=== PATIENT | female | born 1955 | race Caucasian/White ===

== ENCOUNTER → 2023-05-10 08:31 | Outpatient (REF) | payer MEDICARE, OTHER, SELFPAY | LOC: DHCBC/DCA 08:31 | PROVIDERS: ATTENDING PHYSICIAN Nuclear Medicine Nuclear Cardiology; FAMILY PHYSICIAN Family Medicine | DX: R00.2 Palpitations (principal); R07.9 Chest pain, unspecified | CPT/HCPCS: 78452; 93017; A9500; J2785 ==

== ENCOUNTER → 2023-05-25 07:16 | Outpatient (REF) | payer MEDICARE, OTHER, SELFPAY | LOC: DHCBS MAIN 07:16 | PROVIDERS: ATTENDING PHYSICIAN Nuclear Medicine Nuclear Cardiology; FAMILY PHYSICIAN Family Medicine | DX: R00.2 Palpitations (principal); R07.9 Chest pain, unspecified | CPT/HCPCS: 93306 ==

== ENCOUNTER → 2023-06-09 11:11 | Outpatient (REF) | payer MEDICARE, OTHER, SELFPAY | LOC: WDC 11:11 | PROVIDERS: ATTENDING PHYSICIAN Family Medicine | DX: Z12.31 Encounter for screening mammogram for malignant neoplasm of breast (principal) | CPT/HCPCS: 77063; 77067 ==

== ENCOUNTER 2023-08-15 19:55 | Emergency (ER) | payer MEDICARE, OTHER, SELFPAY ==
[2023-08-15 20:08] VITALS: BP 176/104
--- NOTE | 2023-08-15 20:35 | ED.GENMED ---
History of Present Illness
General
Chief Complaint: Musculo-Skeletal Complaint
Source: patient
Exam Limitations: none
Time Seen by Provider: 08/15/23 20:26
Travel History
Have you had any contact with someone who has COVID-19?: No
Do you have any symptoms of coronavirus? Fever > 100 degrees, chills, cough, shortness of breath, sore throat, loss of taste or smell, muscle aches, or headache?: Yes
Symptoms:: cold symptoms
History of Present Illness
History of Present Illness:
68-year-old female nontraumatic left sided neck pain that started 3+ days ago. Pain is left paracervical. Clearly worse with lateral rotation to the left and right. Some spasm-like episodes. Is able to flex the neck. No numbness tingling
weakness unusual headaches fever or other complaints.
Past History
Past History
ED Past Medical History: Hypercholesterolemia and Other (Interstitial cystitis)
Review of Systems
Review of Systems
All Other Systems: Not applicable
Constitutional: Denies fever
Neurological: Denies dizzy, headache, weakness or numbness
Phy Exam
Physical Exam
Physical Exam:
GENERAL: Alert and oriented in no apparent distress. Patient ambulated to the room without difficulty
EYE: Orbits normal.
NECK: Able to flex the left relatively well. However self splinting with significant decreased left and right lateral rotation. No spinal tenderness. Left paraspinal tenderness. No swelling erythema or warmth. No carotid bruit
CARDIAC: Regular rate and rhythm without any obvious murmurs.
LUNGS: Clear breath sounds,normal
NEUROLOGICAL: Alert and oriented , grossly non-focal
SKIN: Warm and dry, no rash or lesion, no discoloration, skin intact.
MUSCULOSKELETAL: No edema,no deformity.Good color
PSYCH: Normal and appropriate interaction.
Course
Orders/Labs/Results
Orders:
Orders
08/15/23 20:33
IV Insert/Care/Rem.- Treatment PRN
08/15/23 20:34
CT Cervical Spine W/o Iv Contr Urgent
Comment:
Reason For Exam: Nontraumatic neck pain
08/15/23 20:35
Diazepam [Valium] 2 mg PO NOW STA
Ketorolac [Toradol] 15 mg IV NOW STA
08/15/23 20:43
Basic Metabolic Panel Urgent
CRP [C-Reactive Protein] Urgent
Complete Blood Count/With Diff Urgent
ESR [Erythrocyte Sed Rate] Urgent
Lyme Progressive Urgent
Abnormal Lab Results
08/15/23
20:43
WBC 11.2 H 10^3/uL
(4.8-10.8)
Absolute Neuts (auto) 7.8 H 10^3/uL
(1.4-6.5)
BUN 20 H mg/dl
(7-17)
Creatinine 0.5 L mg/dL
(0.6-1.0)
Glucose 108 H mg/dl
(70-99)
08/15/23 20:43
08/15/23 20:43
Vital Signs
Initial and Last Documented VS:
Initial Vital Signs
Temp Pulse Resp BP Pulse Ox
99.1 F 94 20 176/104 98
08/15/23 20:08 08/15/23 20:08 08/15/23 20:08 08/15/23 20:08 08/15/23 20:08
Last Documented Vital Signs
Temp Pulse Resp BP Pulse Ox
99.1 F 76 18 144/74 99
08/15/23 20:08 08/15/23 21:59 08/15/23 21:59 08/15/23 21:59 08/15/23 21:59
MDM/Problems Addressed
Differential Diagnosis Includes:
Nontraumatic left paracervical tenderness with clearly positional component. Doubt infectious issue. However we we will do an ESR CRP and WBC count as a screen. No neurologic symptoms with this. Clinically not meningitic. Clinically this is
very much a torticollis. Labs pending. Toradol and Valium. Patient had asked about a Lyme issue. Highly doubt it but we can send a Lyme titer.
*Radiology
Radiology exam reviewed: radiology read reviewed (Degenerative changes)
*Pulse Oximetry
Patient hypoxic: no
*Critical Care Note
Total Time (30-74mins, 75-104mins- exclusive of procedures): Not Applicable
Update Note
Update Note:
Nothing to support infectious or acute neurologic issue. Patient has better range of motion when returning to the room. Do a low-dose of steroids changed to Valium as a muscle relaxer and follow-up.
ED Attending Note
-
Portions of this chart may have been created with voice recognition software.� Occasional wrong word or��sound alike� substitutions may have occurred due to the inherent limitations of voice recognition software.
Discharge Plan
Departure
Patient Disposition: Home (Routine Discharge)
Date of Disposition: 08/15/23
Time of Disposition: 22:19
Patient with high blood pressure during this ER visit?: Yes
Discharge Problem:
Left paracervical pain/torticollis
Instructions: Torticollis (DC), Neck Pain ED, BLOOD PRESSURE
Prescriptions:
New
methylprednisolone [Medrol (Ej)] 4 mg tablets,dose pack
See Rx Instructions .ROUTE .COMPLEX Qty: 21 0RF
Rx Instructions:
for 6 days
diazepam [Valium] 5 mg tablet
5 mg PO TID PRN (Reason: muscle spasm) Qty: 14 0RF
Referrals:
Nesha Ramires MD [Family Provider] - Follow up in 2-3 days
Activity Restrictions/Additional Instructions:
You can try the Valium instead of your other muscle relaxer. Do not take both
Continue Advil Motrin or Aleve
Medrol Dosepak.
Interventions
Interventions:
*Risk Screen - Suicide Last Done: 08/15/23 20:08
*General Assessment Last Done: 08/15/23 20:08
*Neglect/Abuse Screening Last Done: 08/15/23 20:08
ED- Fall Risk Assessment Last Done: 08/15/23 20:08
*ED COVID-19 Vaccine History Last Done: 08/15/23 20:08
ED-Musculoskeletal Assessment Last Done: 08/15/23 20:51
Discharge Date and Time
Print Language: SENEGALESE
[2023-08-15 20:38] VITALS: BMI 26.8
[2023-08-15] MEDS: VALIUM 2 MG PO ×2 (20:44→22:37)
[2023-08-15] MEDS: TORADOL 15 MG IV (20:44)
[2023-08-15 20:55] LABS: % Basophils 0.4 % (0-2); % Eosinophils 1.1 % (0-6); % Immature Granulocytes 0.4 % (0-0.5); % Lymphocytes 23.5 % (20.5-51.1); % Monocytes 5.3 % (1.7-9.3); % Neutrophils 69.3 % (42.2-75.2); Absolute Basophils 0.1 10^3/uL (0-0.2); Absolute Eosinophils 0.1 10^3/uL (0-0.7); Absolute Lymphocytes 2.6 10^3/uL (1.2-3.4); Absolute Monocytes 0.6 10^3/uL (0.1-0.6); Absolute Neutrophils 7.8 10^3/uL (1.4-6.5); Hematocrit 38.9 % (37.0-47.0); Hemoglobin 13.1 g/dL (12.0-16.0); Mean Corp Hgb Conc. 33.7 g/dL (33.0-37.0); Mean Corpuscular Volume 86.3 fL (81.0-99.0); Mean Platelet Volume 9.1 fL (7.4-10.4); Nucleated Red Blood Cells % 0 %; Platelet Count 350 10^3/uL (130-400); Red Blood Cell Count 4.51 10^6/uL (4.20-5.40); Red Cell Dist. Width 14.2 % (11.5-14.5); White Blood Cell Count 11.2 10^3/uL (4.8-10.8)
[2023-08-15 21:12] LABS: Blood Urea Nitrogen 20 mg/dl (7-17); Calcium 10.1 mg/dl (8.4-10.2); Carbon Dioxide 29 mmol/L (22-30); Chloride 101 mmol/L (98-107); Estimated Creatinine Clearance 82 ml/min; Glucose 108 mg/dl (70-99); Sodium 140 mmol/L (135-145); eGFR > 60.00
[2023-08-15 21:19] LABS: Erythrocyte Sed Rate 14 mm/hour (0-20)
[2023-08-15 21:59] VITALS: BP 144/74
[2023-08-15] MEDS: DECADRON 4 MG IV (22:30)
[2023-08-17 13:58] LABS: Lyme Antibody Screen, EIA Negative (Negative)
== END 2023-08-15 22:42 | disposition home or self-care (01) ==
LOC: EMR 19:55
PROVIDERS: EMERGENCY PHYSICIAN Emergency Medicine; FAMILY PHYSICIAN Family Medicine
DX: M54.2 Cervicalgia (principal); M43.6 Torticollis; R03.0 Elevated blood-pressure reading, without diagnosis of hypertension
CPT/HCPCS: 99284; 96374; 96375; 72125; 80048; 85025; 85652; 86140; 86618

== ENCOUNTER → 2023-11-16 06:36 | Day surgery (SDC) | payer MEDICARE, OTHER, SELFPAY | LOC: GI 06:36 | PROVIDERS: ATTENDING PHYSICIAN Internal Medicine; FAMILY PHYSICIAN Family Medicine | DX: Z12.11 Encounter for screening for malignant neoplasm of colon (principal); K57.30 Diverticulosis of large intestine without perforation or abscess without bleeding; K64.4 Residual hemorrhoidal skin tags; K44.9 Diaphragmatic hernia without obstruction or gangrene; R12 Heartburn; Z86.010 Personal history of colon polyps | CPT/HCPCS: 43235; G0105 ==

== ENCOUNTER → 2024-02-26 10:57 | Outpatient (REF) | payer MEDICARE, OTHER, SELFPAY | LOC: RAD 10:57 | PROVIDERS: ATTENDING PHYSICIAN Nurse Practitioner Obstetrics & Gynecology; FAMILY PHYSICIAN Family Medicine | DX: Z13.820 Encounter for screening for osteoporosis (principal); Z78.0 Asymptomatic menopausal state | CPT/HCPCS: 77080 ==

== ENCOUNTER 2024-06-13 13:59 | Emergency (ER) | payer MEDICARE, OTHER, SELFPAY ==
[2024-06-13] VITALS (8 sets, daily range): BP systolic 131–183; BP diastolic 70–107; BMI 30.6
[2024-06-13 14:26] LABS: % Basophils 0.4 % (0-2); % Eosinophils 0.8 % (0-6); % Immature Granulocytes 0.4 % (0-0.5); % Lymphocytes 25.2 % (20.5-51.1); % Monocytes 4.6 % (1.7-9.3); % Neutrophils 68.6 % (42.2-75.2); Absolute Eosinophils 0.1 10^3/uL (0-0.7); Absolute Lymphocytes 2.3 10^3/uL (1.2-3.4); Absolute Monocytes 0.4 10^3/uL (0.1-0.6); Absolute Neutrophils 6.4 10^3/uL (1.4-6.5); Hematocrit 38.5 % (37.0-47.0); Hemoglobin 12.7 g/dL (12.0-16.0); Mean Corpuscular Hgb 29.1 pg (27.0-31.0); Mean Corpuscular Volume 88.3 fL (81.0-99.0); Mean Platelet Volume 9.1 fL (7.4-10.4); Nucleated Red Blood Cells % 0 %; Platelet Count 288 10^3/uL (130-400); Red Blood Cell Count 4.36 10^6/uL (4.20-5.40); Red Cell Dist. Width 14.1 % (11.5-14.5); White Blood Cell Count 9.3 10^3/uL (4.8-10.8)
[2024-06-13 14:40] LABS: ALT (SGPT) 30 U/L (0-35); AST (SGOT) 26 U/L (14-36); Alkaline Phosphatase 104 U/L (38-126); Blood Urea Nitrogen 22 mg/dl (7-17); Calcium 9.8 mg/dl (8.4-10.2); Carbon Dioxide 28 mmol/L (22-30); Chloride 106 mmol/L (98-107); Glucose 119 mg/dl (70-99); Potassium 4.1 mmol/L (3.5-5.1); Sodium 142 mmol/L (135-145); Total Bilirubin 0.6 mg/dl (0.2-1.3); Total Protein 7.6 g/dl (6.3-8.2); eGFR > 60.00
[2024-06-13 14:54] LABS: Troponin I < 0.012 ng/ml
--- NOTE | 2024-06-13 17:00 | ED.GENMED ---
History of Present Illness
<JESÚS Johnson - Last Filed: 06/13/24 20:21>
General
Chief Complaint: Dizziness
Source: patient
Exam Limitations: none
Time Seen by Provider: 06/13/24 16:20
Nursing documentation reviewed up to this point in time: agreed with
History of Present Illness
History of Present Illness:
Patient is a 69 female who presented to the ER for evaluation. Patient started with pressure in her forehead which felt like sinus pressure /congestion last week and then developed dizziness and headaches. She has felt intermittently dizzy and has
had intermittent headaches since. She reports it feels like a tension headache. She describes the dizziness as feeling almost woozy and off balance worse with changing position. She does not feel lightheaded or like she is going to pass out. She
does feel worse with position change. She does have slight nausea with symptoms. She denies any neck pain/injury. She does report her blood pressure has been elevated and she has no prior history of elevated blood pressure. She denies any recent
illness fever chills. Denies any associated chest pain. She does feel that her vision has been a little blurry. she denies any chest pain shortness of breath.
Past History
<JESÚS Johnson - Last Filed: 06/13/24 20:21>
Past History
ED Past Medical History: Hypercholesterolemia and Other (Interstitial cystitis)
Review of Systems
<JESÚS Johnson - Last Filed: 06/13/24 20:21>
Review of Systems
Allergies reviewed?: Yes
All Other Systems: ROS reviewed and negative except as documented in HPI and ROS
Constitutional: Reports no symptoms; Denies fever, fatigue or chills
EENT: Reports no symptoms
Respiratory: Reports no symptoms
ABD/GI: Reports nausea
: Reports no symptoms
Musculoskeletal: Reports no symptoms
Skin: Reports no symptoms
Neurological: Reports dizzy and headache
Psychiatric: Reports no symptoms
Phy Exam
<JESÚS Johnson - Last Filed: 06/13/24 20:21>
General Physical Exam
General Presentation: no apparent distress
General age: appears stated age
General Skin: warm and dry
General Habitus: normal
General Mental: alert
General Hydration: appears well hydrated
ENT Exam
ENT Exam: EOMI and neck supple
Eye Exam
Eye Exam: PERRL, EOMI and other (No nystagmus bilaterally)
Eye Exam General: PERRL: bilateral and EOM intact: bilateral
Pupil Exam: Bilateral: round and reactive
Neurological Exam
Neurological Exam: alert, oriented x3, no motor deficits, no sensory deficits, speech normal and other (Ambulatory steady gait)
Musculoskeletal Exam
Musculoskeletal Exam: full ROM
Skin Exam
Skin Exam: normal color and warm/dry
Psychiatric Exam
Psychiatric Exam: normal mood/affect
Course
<JESÚS Johnson - Last Filed: 06/13/24 20:21>
Orders/Labs/Results
Orders:
Orders
06/13/24 14:00
Electrocardiogram (*1) Urgent
Reason for Study: Vertigo / Dizzy
EKG- Treatment ONCE
06/13/24 14:11
Complete Blood Count/With Diff Urgent
Comprehensive Metabolic Panel Urgent
TSH Reflex To Free T4 Urgent
Comment: ADD ON
Troponin I Urgent
06/13/24 17:13
CT Head W/o Iv Contrast Urgent
Comment:
Reason For Exam: dizzy
06/13/24 17:15
Visual Acuity- Treatment ONCE
06/13/24 17:35
Add On- LAB Urgent
Tests Added?: tsh with reflexive t4
06/13/24 19:27
Acetaminophen [Tylenol] 1,000 mg PO NOW STA
Diazepam [Valium] 2 mg PO NOW STA
Abnormal Lab Results
06/13/24
14:11
BUN 22 H mg/dl
(7-17)
Glucose 119 H mg/dl
(70-99)
06/13/24 14:11
06/13/24 14:11
Vital Signs
Initial and Last Documented VS:
Initial Vital Signs
Temp Pulse Resp BP Pulse Ox
98.0 F 95 16 183/107 98
06/13/24 14:05 06/13/24 14:05 06/13/24 14:05 06/13/24 14:05 06/13/24 14:05
Last Documented Vital Signs
Temp Pulse Resp BP Pulse Ox
98.0 F 72 11 131/72 94
06/13/24 14:05 06/13/24 20:00 06/13/24 20:00 06/13/24 20:00 06/13/24 20:00
<Andrew Newsome MD - Last Filed: 06/13/24 19:42>
Orders/Labs/Results
Orders:
Orders
06/13/24 14:00
Electrocardiogram (*1) Urgent
Reason for Study: Vertigo / Dizzy
EKG- Treatment ONCE
06/13/24 14:11
Complete Blood Count/With Diff Urgent
Comprehensive Metabolic Panel Urgent
TSH Reflex To Free T4 Urgent
Comment: ADD ON
Troponin I Urgent
06/13/24 17:13
CT Head W/o Iv Contrast Urgent
Comment:
Reason For Exam: dizzy
06/13/24 17:15
Visual Acuity- Treatment ONCE
06/13/24 17:35
Add On- LAB Urgent
Tests Added?: tsh with reflexive t4
06/13/24 19:27
Acetaminophen [Tylenol] 1,000 mg PO NOW STA
Diazepam [Valium] 2 mg PO NOW STA
Abnormal Lab Results
06/13/24
14:11
BUN 22 H mg/dl
(7-17)
Glucose 119 H mg/dl
(70-99)
06/13/24 14:11
06/13/24 14:11
Vital Signs
Initial and Last Documented VS:
Initial Vital Signs
Temp Pulse Resp BP Pulse Ox
98.0 F 95 16 183/107 98
06/13/24 14:05 06/13/24 14:05 06/13/24 14:05 06/13/24 14:05 06/13/24 14:05
Last Documented Vital Signs
Temp Pulse Resp BP Pulse Ox
98.0 F 72 11 131/72 94
06/13/24 14:05 06/13/24 20:00 06/13/24 20:00 06/13/24 20:00 06/13/24 20:00
<JESÚS Johnson - Last Filed: 06/13/24 20:21>
MDM/Problems Addressed
MDM/Problems Addressed:
As documented patient is a 69 yr old female who presented with dizziness. Patient reports intermittent dizziness for the past week. She did start out with sinus pressure congestion. She reports dizziness seems to be worse with position. She
describes this as feeling like she has been on a ferry. Denies near syncope sensation.
Patient denies any recent trauma no chiropractor manipulation. Patient presents awake alert no acute distress patient has normal neurological exam no nystagmus however does have positive Miller-Hallpike on the right; she is ambulatory with a steady
gait normal finger-nose normal/normal [id number], no obvious deficits. CT head negative.
Labs reviewed and unremarkable patient's blood pressure is mildly elevated which is new for patient
Case discussed with physician evaluated patient symptoms are consistent with peripheral vertigo will give a dose of Valium and Tylenol here will plan to discharge with meclizine with close outpatient follow-up PCP and neurology
<JESÚS Johnson - Last Filed: 06/13/24 20:21>
*Radiology
Radiology exam reviewed: radiology read reviewed
*Pulse Oximetry
Patient hypoxic: no
*EKG
Interpreted by ED Provider?: Yes
Interpretation: abnormal
Heart Rate: 94
Rate: normal
Rhythm: sinus
Ischemia: non-specific ST changes
*Critical Care Note
Total Time (30-74mins, 75-104mins- exclusive of procedures): Not Applicable
ED Attending Note
<JESÚS Johnson - Last Filed: 06/13/24 20:21>
-
Portions of this chart may have been created with voice recognition software.� Occasional wrong word or��sound alike� substitutions may have occurred due to the inherent limitations of voice recognition software.
<Andrew Newsome MD - Last Filed: 06/13/24 19:42>
ED Attending Note
Patient seen and examined by attending physician: Yes
ED Attending Note:
I have seen and evaluated the patient with a [id number] encounter. I have spoken to the advance practicer provider and involved in the medical history, the physical exam, medical decision making.
Evaluation and management service: agree unless noted differently below.
Results interpretation: agree unless noted differently below.
Focused HPI: 69-year-old female with a past medical history of hyperlipidemia and GERD presents to the emergency room with her for evaluation of dizziness. Patient reports symptoms have been intermittent for the past week. Symptoms seem to
be worse when she is moving around somewhat better when she is sitting still. She reports dizziness 'like I am standing on a ferry.' She denies any associated vision loss, speech issues, focal weakness or numbness or any other neurologic
complaints. She has had some recent sinus congestion. She denies having had similar symptoms in the past.
Physical exam: Awake and alert not in distress. Hypertensive otherwise normal vitals. Extraocular movements are intact; she has subtle rightward nystagmus but no rotary or vertical nystagmus. She has a positive Gilda-Hallpike towards the right.
Pupils are equal round and reactive to light bilaterally. Test of skew normal, head impulse test normal.
Medical Decision Makin-year-old female presents for evaluation of intermittent dizziness for the past week. Vitals and exam as above. Labs reviewed and unremarkable. EKG shows sinus rhythm. CT head negative for any acute pathology. Full
clinical picture is consistent with peripheral vertigo. Treat symptomatically. Stable for discharge refer to ENT as needed.
Discharge Plan
Departure
Patient Disposition: Home (Routine Discharge)
Date of Disposition: 06/13/24
Time of Disposition: 20:10
Patient with high blood pressure during this ER visit?: Yes
Condition: Fair
Covid-19: Not Applicable
Discharge Problem:
Vertigo
Instructions: Vertigo (a Type of Dizziness) (DC), BLOOD PRESSURE
Prescriptions:
New
meclizine 25 mg tablet
25 mg PO TID PRN (Reason: motion sickness) Qty: 10 0RF
No Action
methylprednisolone [Medrol (Ej)] 4 mg tablets,dose pack
See Rx Instructions .ROUTE .COMPLEX Qty: 21 0RF
Rx Instructions:
for 6 days
diazepam [Valium] 5 mg tablet
5 mg PO TID PRN (Reason: muscle spasm) Qty: 14 0RF
diazepam [Valium] 5 mg tablet
5 mg PO BID PRN (Reason: muscle spasm) Qty: 8 0RF
Referrals:
Nesha Ramires MD [Family Provider] -
Gustabo Nguyễn MD [Active] -
Activity Restrictions/Additional Instructions:
As discussed a prescription of meclizine was sent to your pharmacy take as directed. Follow-up with your family doctor for reevaluation of your blood pressure
Follow-up with family doctor in the next 1 - 2 days for reevaluation. In addition please follow-up with neurology. Return if any worsening of symptom
Interventions
Interventions:
*Risk Screen - Suicide Last Done: 06/13/24 14:05
*General Assessment Last Done: 06/13/24 16:30
*Neglect/Abuse Screening Last Done: 06/13/24 14:05
*ED- Fall Risk Assessment Last Done: 06/13/24 16:30
*ED COVID-19 Vaccine History Last Done: 06/13/24 16:30
ED- Neurological Assessment Last Done: 06/13/24 16:32
Discharge Date and Time
Print Language: TELUGU
[2024-06-13] MEDS: VALIUM 2 MG PO (19:36)
[2024-06-13] MEDS: TYLENOL 1000 MG PO (19:36)
== END 2024-06-13 20:40 | disposition home or self-care (01) ==
LOC: EMR 13:59
PROVIDERS: EMERGENCY PHYSICIAN Emergency Medicine; FAMILY PHYSICIAN Family Medicine
DX: R42 Dizziness and giddiness (principal); R51.9 Headache, unspecified; E78.00 Pure hypercholesterolemia, unspecified
CPT/HCPCS: 99284; 70450; 80053; 84443; 84484; 85025; 93005

== ENCOUNTER 2024-08-13 22:35 | Emergency (ER) | payer MEDICARE, OTHER, SELFPAY ==
[2024-08-13 22:38] VITALS: BP 152/91
[2024-08-13 23:07] VITALS: BMI 29.5
[2024-08-13] MEDS: BENADRYL 25 MG PO (23:50)
[2024-08-13] MEDS: PEPCID 20 MG PO (23:51)
[2024-08-13] MEDS: DELTASONE 40 MG PO (23:51)
--- NOTE | 2024-08-13 23:56 | ED.GENMED ---
History of Present Illness
General
Chief Complaint: Skin Problem
Source: patient
Exam Limitations: none
Time Seen by Provider: 08/13/24 23:15
History of Present Illness
History of Present Illness:
69-year-old female with itchy rash x 24 hours. No obvious precipitating event. No new medications no exposures. No trouble breathing or swallowing. No fever. She was given a prescription for a Medrol Dosepak but was told by pharmacy to not
start until tomorrow. She did take a Claritin earlier today.
Past History
Past History
ED Past Medical History: HTN, Hypercholesterolemia and Other (Interstitial cystitis)
ED Past Surgical History: Orthopedic
Review of Systems
Review of Systems
All Other Systems: Not applicable
Constitutional: Denies fever or chills
Respiratory: Denies trouble breathing
Cardiac: Denies chest pain
Phy Exam
Physical Exam
Physical Exam:
GENERAL: Alert and oriented in no apparent distress
EYE: Orbits normal. No conjunctival injection. No ulcerations of the orbital mucosa
NECK: Supple, no significant adenopathy.
ENT: Pharynx without erythema. 1 small cold sore on the lower mid lip
CARDIAC: Regular rate and rhythm without any obvious murmurs.
LUNGS: Clear breath sounds,normal
ABDOMEN: Soft, without focal tenderness or distention
NEUROLOGICAL: Alert and oriented , grossly non-focal
SKIN: Warm and dry, diffuse large hive-like rash with erythema and blanching to the chest and back. Some increased in the antecubitals of both arms.
MUSCULOSKELETAL: No edema,no deformity.Good color
PSYCH: Normal and appropriate interaction.
Course
Orders/Labs/Results
Orders:
Orders
08/13/24 23:35
Diphenhydramine [Benadryl] 25 mg PO NOW STA
Famotidine [Pepcid] 20 mg PO NOW STA
Prednisone [Deltasone] 40 mg PO NOW STA
Vital Signs
Initial and Last Documented VS:
Initial Vital Signs
Temp Pulse Resp BP Pulse Ox
98.3 F 89 20 152/91 100
08/13/24 22:38 08/13/24 22:38 08/13/24 22:38 08/13/24 22:38 08/13/24 22:38
Last Documented Vital Signs
Temp Pulse Resp BP Pulse Ox
98.3 F 89 20 152/91 100
08/13/24 22:38 08/13/24 22:38 08/13/24 22:38 08/13/24 22:38 08/13/24 22:38
MDM/Problems Addressed
Differential Diagnosis Includes:
Clinically this is an allergic reaction. No airway issue no stridor no anaphylaxis. She did take Claritin earlier today. She has some concerns with steroids. She has 1 small ulcer on her lower lip however do not feel this is Boland-Petr
syndrome. She has no other mucosal involvement and this is clinically a true hive-like rash. Small dose of H1 matthew. H2 matthew. Increased dose of steroids. No indication for epinephrine. I did explain to her that this was likely going to
take some time to resolve.
*Critical Care Note
Total Time (30-74mins, 75-104mins- exclusive of procedures): Not Applicable
ED Attending Note
-
Portions of this chart may have been created with voice recognition software.� Occasional wrong word or��sound alike� substitutions may have occurred due to the inherent limitations of voice recognition software.
Discharge Plan
Departure
Patient Disposition: Home (Routine Discharge)
Date of Disposition: 08/14/24
Time of Disposition: 00:01
Patient with high blood pressure during this ER visit?: Yes
Discharge Problem:
Hives
Instructions: Hives, BLOOD PRESSURE
Prescriptions:
New
prednisone 10 mg tablet
10 mg PO DAILY Qty: 30 0RF
Rx Instructions:
4 tablets day 1. Then 1 less tablet every third day until gone
No Action
atorvastatin 20 mg Tablet
20 mg PO HS
amitriptyline 10 mg Tablet
10 mg PO HS
losartan 25 mg Tablet
25 mg PO DAILY
Referrals:
Nesha Ramires MD [Family Provider, [facility]] - Follow up in 2-3 days
Activity Restrictions/Additional Instructions:
As we discussed, recommend the higher dose of prednisone instead of the Medrol Dosepak.
This dosing is 4 tablets day 1 then 1 less tablet every third day until gone.
This prescription was called to your pharmacy
Also take a Pepcid a day
Also continue Claritin
Interventions
Interventions:
*Risk Screen - Suicide Last Done: 08/13/24 22:38
*General Assessment Last Done: 08/13/24 22:38
*Neglect/Abuse Screening Last Done: 08/13/24 22:38
*ED- Fall Risk Assessment Last Done: 08/13/24 23:09
ED-Skin Assessment Last Done: 08/13/24 23:10
Discharge Date and Time
Print Language: IRISH
== END 2024-08-14 00:10 | disposition home or self-care (01) ==
LOC: EMR 22:35
PROVIDERS: EMERGENCY PHYSICIAN Emergency Medicine; FAMILY PHYSICIAN Family Medicine
DX: L50.9 Urticaria, unspecified (principal); I10 Essential (primary) hypertension; E78.00 Pure hypercholesterolemia, unspecified
CPT/HCPCS: 99283

== ENCOUNTER 2024-09-21 21:17 | Emergency (ER) | payer MEDICARE, OTHER, SELFPAY ==
[2024-09-21 21:21] VITALS: BP 151/84
--- NOTE | 2024-09-21 23:41 | ED.GENMED ---
History of Present Illness
<Alcides Kitchen MD, Resident - Last Filed: 09/22/24 00:52>
General
Chief Complaint: Extremity Pain (non-traumatic)
Source: patient
Exam Limitations: none
Time Seen by Provider: 09/21/24 23:16
Nursing documentation reviewed up to this point in time: agreed with
History of Present Illness
History of Present Illness:
This is a 69-year-old female with history of hypertension, hyperlipidemia, acquired, anxiety presenting in the emergency department with concerns of right lower leg pain which started suddenly after finished a phone call. She states that she was on
a phone call for almost an hour from 3 to 4 PM and she had her right leg crossed on top of the left leg. After finishing a call she tried to stand up and noticed sudden pain on the right lower leg starting from behind the right knee going to the
lateral side of the right leg to the lateral side of the right foot and she was unable to bear the weight. She tried some ice but did not notice any benefit which prompted her to visit the emergency department. She denies any fevers or chills,
denies any tenderness to touch, denies any redness or swelling. Denies any history of DVT. Denies any blood disorders.
Past History
<Alcides Kitchen MD, Resident - Last Filed: 09/22/24 00:52>
Past History
ED Past Medical History: HTN, Hypercholesterolemia and Other (Interstitial cystitis)
ED Past Surgical History: Orthopedic
Social History
Tobacco: Non-smoker
Drug: None
Personal:
Living: with family
Review of Systems
<Alcides Kitchen MD, Resident - Last Filed: 09/22/24 00:52>
Review of Systems
Constitutional: Denies fever or chills
EENT: Denies sore throat
Respiratory: Denies cough
Cardiac: Denies chest pain
ABD/GI: Denies abdominal pain
: Denies dysuria
Musculoskeletal: Reports other (Right calf pain); Denies joint swelling
Skin: Denies itching or rash
Neurological: Denies dizzy, headache or numbness
Endocrine: Denies polyuria
Hematologic/Lymphatic: Denies bleeding
Phy Exam
<Alcides Kitchen MD, Resident - Last Filed: 09/22/24 00:52>
General Physical Exam
General Presentation: no apparent distress
General age: appears stated age
General Skin: warm
General Habitus: normal
General Mental: alert
General Hydration: appears well hydrated
Cardiovascular Exam
Cardiovascular Exam: regular rate/rhythm and no murmur
Pulmonary Exam
Pulmonary Exam: lungs clear and no crackles
Gastrointestinal Exam
Gastrointestinal Exam: soft and non distended
Musculoskeletal Exam
Musculoskeletal Exam: no edema, neuro vasc intact and other (Right lower leg nontender to touch. No obvious finding on visual inspection. Right knee range of motion without any pain)
Course
<Alcides Kitchen MD, Resident - Last Filed: 09/22/24 00:52>
Orders/Labs/Results
Orders:
Orders
09/21/24 21:25
CR Knee- Right 4 Or More View* Urgent
Comment:
Reason For Exam: pain behind r knee
09/21/24 23:36
Ketorolac [Toradol] 60 mg IM NOW STA
09/21/24 23:41
Ice Pack-Treatment DIRECTED
Location: right lateral knee
09/22/24 00:06
US Periph Venous LOWER Ext RT Urgent
Reason For Exam: pain below knee after prolong sitting
Vital Signs
Initial and Last Documented VS:
Initial Vital Signs
Temp Pulse Resp BP Pulse Ox
99.1 F 93 20 151/84 97
09/21/24 21:21 09/21/24 21:21 09/21/24 21:21 09/21/24 21:21 09/21/24 21:21
Last Documented Vital Signs
Temp Pulse Resp BP Pulse Ox
99.1 F 77 18 148/90 96
09/21/24 21:21 09/22/24 00:48 09/22/24 00:48 09/22/24 00:01 09/22/24 00:48
<Agueda Kim, - Last Filed: 09/22/24 00:17>
Orders/Labs/Results
Orders:
Orders
09/21/24 21:25
CR Knee- Right 4 Or More View* Urgent
Comment:
Reason For Exam: pain behind r knee
09/21/24 23:36
Ketorolac [Toradol] 60 mg IM NOW STA
09/21/24 23:41
Ice Pack-Treatment DIRECTED
Location: right lateral knee
09/22/24 00:06
US Periph Venous LOWER Ext RT Urgent
Reason For Exam: pain below knee after prolong sitting
Vital Signs
Initial and Last Documented VS:
Initial Vital Signs
Temp Pulse Resp BP Pulse Ox
99.1 F 93 20 151/84 97
09/21/24 21:21 09/21/24 21:21 09/21/24 21:21 09/21/24 21:21 09/21/24 21:21
Last Documented Vital Signs
Temp Pulse Resp BP Pulse Ox
99.1 F 77 18 148/90 96
09/21/24 21:21 09/22/24 00:48 09/22/24 00:48 09/22/24 00:01 09/22/24 00:48
<Alcides Kitchen MD, Resident - Last Filed: 09/22/24 00:52>
MDM/Problems Addressed
Differential Diagnosis Includes:
Muscular vs neuropathic pain vs less likely dvt vs less likely Bakers cyst
MDM/Problems Addressed:
X-ray of the right knee with mild degenerative changes and no acute osseous abnormalities.
Will get an ultrasound of right lower extremity to check for any potential DVT or Zhang's cyst
Im Toradol 60 mg for pain
Doppler ultrasound of the right lower extremity with no evidence of thrombosis within the imaged veins of the right lower extremity. The common femoral, femoral, popliteal, peroneal and posterior tibial veins are compressible with normal
spontaneous phasic flow.
Patient reports minimal pain at this time and able to bend the knee without any discomfort
Shared decision was made with the patient for discharge home. Return precautions reviewed. Advise using ice and rest. Advised to follow-up with PCP. Patient voices understanding with the plan
<Alcides Kitchen MD, Resident - Last Filed: 09/22/24 00:52>
*Pulse Oximetry
SaO2: 97
Oxygen Mode of Delivery: Room air
Patient hypoxic: no
*Critical Care Note
Total Time (30-74mins, 75-104mins- exclusive of procedures): Not Applicable
ED Attending Note
<Alcides Kitchen MD, Resident - Last Filed: 09/22/24 00:52>
-
Portions of this chart may have been created with voice recognition software.� Occasional wrong word or��sound alike� substitutions may have occurred due to the inherent limitations of voice recognition software.
<Agueda Kim DO - Last Filed: 09/22/24 00:17>
ED Attending Note
Patient seen and examined by attending physician: Yes
I performed a history and physical exam of patient and discussed management with resident, I reviewed resident's note and agree with documented findings and plan of care.: Yes
ED Attending Note:
This is a 69-year-old woman with history of hypertension, hyperlipidemia who presents with right lateral to posterior knee pain that radiates down her right lateral lower leg. Pain began tonight after sitting for an extended period of time chatting
with her sister on the phone, legs crossed with right leg crossed over her left. She had no pain while sitting in this position but after ending the phone call and uncrossing her legs and attempting to walk she then noted acute, moderate pain right
lateral to posterior knee. Pain is worse with ambulation, worse with flexion and extension of her knee. She denies weakness or numbness. No history of similar episodes in the past.
She has a remote history of right knee arthroscopy 2013.
She has not taken anything for discomfort.
69-year-old woman appears her stated age, bright and alert, pleasant, appears in no acute distress.
Right knee without effusion nor erythema nor ecchymosis. There is mild to moderate tenderness right lateral knee about the proximal tibia as well as mild tenderness posterolateral aspect of the knee and mild tenderness lateral proximal calf region.
There is full passive range of motion of the knee with increased pain with active flexion and active extension. There is no crepitus, no clicking. No posterior calf tenderness. There is no peripheral edema. No ankle nor foot tenderness.
Peripheral pulses are full and equal bilaterally. There is full ankle and toe range of motion without difficulty nor pain. No tenderness to the hip.
History and exam most consistent with pressure neuropathy versus mild strain of right knee. Could consider Zhang's cyst injury/rupture.
Knee x-ray is unremarkable. Mild DJD.
Will medicate for pain with an IM dose of Toradol. Apply ice.
Will check ultrasound right lower extremity.
Discharge Plan
Departure
Patient Disposition: Home (Routine Discharge)
Date of Disposition: 09/22/24
Time of Disposition: 00:49
Patient with high blood pressure during this ER visit?: Yes
Condition: Good
Discharge Problem:
Acute pain of right lower extremity
Instructions: Muscle and Bone Pain (DC), BLOOD PRESSURE
Prescriptions:
No Action
atorvastatin 20 mg Tablet
20 mg PO HS
amitriptyline 10 mg Tablet
10 mg PO HS
losartan 25 mg Tablet
25 mg PO DAILY
prednisone 10 mg tablet
10 mg PO DAILY Qty: 30 0RF
Rx Instructions:
4 tablets day 1. Then 1 less tablet every third day until gone
Referrals:
Nesha Ramires MD [Family Provider, [facility]] - Follow up in 1 week
Activity Restrictions/Additional Instructions:
You were seen at the [facility] emergency department with concerns of right lower leg pain. We performed a right knee x-ray which did not show any acute bony abnormality. You also had an ultrasound of your right lower extremity which did
not show any evidence of thrombosis within the imaged deep veins of right lower extremity. He received 1 dose of IM Toradol 60 mg. At this time there is no indication for additional imaging. If you develop any worsening of your current or any
worrisome symptoms please return to the emergency department. You may use ice, [id number] ibuprofen or Tylenol for pain relief. Please follow-up with your family doctor outpatient.
Interventions
Interventions:
*Risk Screen - Suicide Last Done: 09/21/24 21:21
*General Assessment Last Done: 09/21/24 21:21
*Neglect/Abuse Screening Last Done: 09/21/24 21:21
*ED- Fall Risk Assessment Last Done: 09/22/24 00:04
*ED COVID-19 Vaccine History Last Done: 09/22/24 00:04
ED-Musculoskeletal Assessment Last Done: 09/21/24 23:16
Discharge Date and Time
Print Language: ALGERIAN
[2024-09-21] MEDS: TORADOL 60 MG IM (23:59)
[2024-09-22 00:01] VITALS: BP 148/90
[2024-09-22 01:00] VITALS: BP 121/72
== END 2024-09-22 01:15 | disposition home or self-care (01) ==
LOC: EMR 21:17
PROVIDERS: EMERGENCY PHYSICIAN Emergency Medicine; FAMILY PHYSICIAN Family Medicine
DX: M79.604 Pain in right leg (principal); M17.11 Unilateral primary osteoarthritis, right knee; I10 Essential (primary) hypertension; E78.00 Pure hypercholesterolemia, unspecified
CPT/HCPCS: 99285; 96372; 73564; 93971

== ENCOUNTER 2024-10-02 08:23 | Emergency (ER) | payer MEDICARE, OTHER, SELFPAY ==
[2024-10-02 08:28] VITALS: BP 165/94
[2024-10-02 09:22] VITALS: BP 139/87; BMI 29.8
[2024-10-02 09:22] LABS: Hematocrit 35.8 % (37.0-47.0); Hemoglobin 12.0 g/dL (12.0-16.0); Mean Corp Hgb Conc. 33.5 g/dL (33.0-37.0); Mean Corpuscular Volume 87.1 fL (81.0-99.0); Nucleated Red Blood Cells % 0 %; Platelet Count 286 10^3/uL (130-400); Red Cell Dist. Width 14.2 % (11.5-14.5)
[2024-10-02 09:35] LABS: COVID-19 Antigen Negative (Negative)
--- NOTE | 2024-10-02 09:39 | ED.GENMED ---
History of Present Illness
General
Chief Complaint: Breathing Problem
Time Seen by Provider: 10/02/24 09:29
History of Present Illness
History of Present Illness:
69-year-old female presents to the emergency department for evaluation of shortness of breath and chest tightness. She states she has had 'a cold' for the past week or longer and is on a Z-Ej provided by urgent care. States that this morning she
awoke with chest tightness and increased difficulty breathing. No history of lung disease. Non-smoker. No fevers or night sweats.
Past History
Past History
ED Past Medical History: HTN, Hypercholesterolemia and Other (Interstitial cystitis)
ED Past Surgical History: Orthopedic
Social History
Tobacco: Non-smoker
Drug: None
Personal:
Living: with family
Review of Systems
Review of Systems
Allergies reviewed?: Yes
All Other Systems: ROS reviewed and negative except as documented in HPI and ROS
Phy Exam
Physical Exam
Physical Exam:
GEN: Well appearing, NAD, WDWN
HEENT: Oral mucosa moist, no scleral icterus
Cardiac: Regular rate and rhythm, no murmur
Lung: No respiratory distress, no tachypnea, lungs clear to auscultation bilaterally
MSK: No gross deformity or injuries
Skin: Good color, no pallor or jaundice, no rashes
Neuro: AO x3, moves all extremities freely
Psych: Calm, cooperative
Scores
Heart Failure Risk
Heart Failure Risk Score: Not Applicable
Course
Orders/Labs/Results
Orders:
Orders
10/02/24 08:33
CR Chest - 2 Views Urgent
Comment:
Reason For Exam: SOB, cough
10/02/24 08:34
ECG [Electrocardiogram (*1)] Urgent
Reason for Study: Shortness of Breath
EKG- Treatment ONCE
10/02/24 09:09
Complete Blood Count/With Diff Urgent
Comprehensive Metabolic Panel Urgent
Troponin I Urgent
10/02/24 09:10
COVID-19 Antigen Urgent
Source: Nasal Swab
Influenza A+B Rapid Molecular Urgent
NEELIMA Source: Nasal Swab
Specimen Description:
10/02/24 09:38
Ipratropium/Albuterol Sulfate [Duoneb] 3 ml INH R NOW STA
Abnormal Lab Results
10/02/24
09:09
RBC 4.11 L 10^6/uL
(4.20-5.40)
Hct 35.8 L %
(37.0-47.0)
Abs Immat Gran (auto) 0.1 H 10^3/uL
(0-0.05)
Immature Gran % 0.8 H %
(0-0.5)
BUN 18 H mg/dl
(7-17)
Glucose 127 H mg/dl
(70-99)
10/02/24 09:09
10/02/24 09:09
Vital Signs
Initial and Last Documented VS:
Initial Vital Signs
Temp Pulse Resp BP Pulse Ox
99.0 F 103 17 165/94 100
10/02/24 08:28 10/02/24 08:28 10/02/24 08:28 10/02/24 08:28 10/02/24 08:28
Last Documented Vital Signs
Temp Pulse Resp BP Pulse Ox
99.0 F 98 10 128/76 97
10/02/24 08:28 10/02/24 10:32 10/02/24 10:15 10/02/24 10:42 10/02/24 10:41
MDM/Problems Addressed
MDM/Problems Addressed:
Patient improved after neb treatment in the ED. Do not suspect ACS or pulmonary embolism given improvement with nebulizer coupled with report of flu/cold symptoms. Will add beta agonist therapy for supportive care
Comment
Comment:
EKG independently interpreted by me shows normal sinus rhythm with no ST changes concerning for ischemia
*Pulse Oximetry
SaO2: 100
Oxygen Mode of Delivery: Room air
Patient hypoxic: no
*Critical Care Note
Total Time (30-74mins, 75-104mins- exclusive of procedures): Not Applicable
ED Attending Note
-
Portions of this chart may have been created with voice recognition software.� Occasional wrong word or��sound alike� substitutions may have occurred due to the inherent limitations of voice recognition software.
Discharge Plan
Departure
Patient Disposition: Home (Routine Discharge)
Date of Disposition: 10/02/24
Time of Disposition: 10:37
Patient with high blood pressure during this ER visit?: No
Discharge Problem:
Acute bronchitis
Instructions: Acute bronchitis in adults
Prescriptions:
New
albuterol sulfate [Ventolin HFA] 90 mcg/actuation HFA aerosol inhaler
2 puff inhalation Q6H PRN (Reason: shortness of breath or wheezing) Qty: 8.5 0RF
No Action
atorvastatin 20 mg Tablet
20 mg PO HS
amitriptyline 10 mg Tablet
10 mg PO HS
losartan 25 mg Tablet
25 mg PO DAILY
prednisone 10 mg tablet
10 mg PO DAILY Qty: 30 0RF
Rx Instructions:
4 tablets day 1. Then 1 less tablet every third day until gone
Referrals:
Nesha Ramires MD [Family Provider, Family Practice]
Interventions
Interventions:
*Risk Screen - Suicide Last Done: 10/02/24 08:29
*General Assessment Last Done: 10/02/24 08:29
*Neglect/Abuse Screening Last Done: 10/02/24 08:32
*ED- Fall Risk Assessment Last Done: 10/02/24 10:47
*ED COVID-19 Vaccine History Last Done: 10/02/24 09:22
*Nursing Disposition Last Done: 10/02/24 10:47
ED- Cardiac Assessment Last Done: 10/02/24 09:23
ED- Pulmonary Assessment Last Done: 10/02/24 09:23
Discharge Date and Time
Discharge Date/Time: 10/02/24 10:48
Print Language: CITIZEN [place]
[2024-10-02] MEDS: DUONEB 3 ML INH (09:41)
[2024-10-02 09:49] LABS: ALT (SGPT) 22 U/L (0-35); AST (SGOT) 22 U/L (14-36); Albumin 4.4 g/dl (3.5-5.0); Alkaline Phosphatase 88 U/L (38-126); Blood Urea Nitrogen 18 mg/dl (7-17); Calcium 9.7 mg/dl (8.4-10.2); Carbon Dioxide 27 mmol/L (22-30); Chloride 105 mmol/L (98-107); Estimated Creatinine Clearance 86 ml/min; Glucose 127 mg/dl (70-99); Potassium 4.0 mmol/L (3.5-5.1); Sodium 139 mmol/L (135-145); Total Protein 7.2 g/dl (6.3-8.2); eGFR > 60.00
[2024-10-02 10:00] VITALS: BP 131/61
[2024-10-02 10:03] LABS: Troponin I < 0.012 ng/ml
[2024-10-02 10:42] VITALS: BP 128/76
== END 2024-10-02 10:48 | disposition home or self-care (01) ==
LOC: EMR 08:23
PROVIDERS: EMERGENCY PHYSICIAN Emergency Medicine; FAMILY PHYSICIAN Family Medicine
DX: J20.9 Acute bronchitis, unspecified (principal); I10 Essential (primary) hypertension; E78.00 Pure hypercholesterolemia, unspecified; Z11.52 Encounter for screening for COVID-19
CPT/HCPCS: 99285; 94640; 71046; 80053; 84484; 85025; 87502; 87811; 93005

== ENCOUNTER → 2024-10-08 13:15 | Outpatient (REF) | payer MEDICARE, OTHER, SELFPAY | LOC: WDC 13:15 | PROVIDERS: ATTENDING PHYSICIAN Family Medicine | DX: Z12.31 Encounter for screening mammogram for malignant neoplasm of breast (principal) | CPT/HCPCS: 77063; 77067 ==

== ENCOUNTER → 2025-01-26 09:35 | Outpatient (REF) | payer MEDICARE, OTHER, SELFPAY | LOC: PAVMRI 09:35 | PROVIDERS: ATTENDING PHYSICIAN Family Medicine | DX: M54.50 Low back pain, unspecified (principal) | CPT/HCPCS: 72148 ==